=== PATIENT | female | born 1985 | race Hispanic/Latino ===

== ENCOUNTER 2017-09-08 23:55 | Inpatient (IN) | payer OTHER ==
[2017-09-08 23:55] VITALS: BMI 18.8
[2017-09-09 00:29] LABS: BASO # 0.1 K/uL (0.0-0.2); EOS # 0.1 K/uL (0.0-0.7); EOS % 0.6 % (0.0-4.0); HEMOGLOBIN 14.1 g/dL (11.0-16.0); LYMPH # 2.8 K/uL (1.0-4.3); LYMPH % 29.2 % (20.0-40.0); MEAN CORPUSCULAR HEMOGLOBIN 31.7 pg (27.0-31.0); MEAN CORPUSCULAR HGB CONC 34.1 g/dL (33.0-37.0); MEAN PLATELET VOLUME 8.8 fL (7.2-11.7); MONO # 0.9 K/uL (0.0-0.8); MONO % 9.1 % (0.0-10.0); NEUT # 5.8 K/uL (1.8-7.0); NEUT % 60.1 % (50.0-75.0); RBC 4.45 Mil/uL (3.80-5.20); RED CELL DISTRIBUTION WIDTH 12.5 % (11.5-14.5); WHITE BLOOD COUNT 9.6 K/uL (4.8-10.8)
--- NOTE | 2017-09-09 00:37 | C.PDOC ---
History Of Present Illness 32 year old female presents to the ED for evaluation of depression and SI with a plan. Patient reports she feels depressed wants to kill herself, patient states she wants to overdose. Patient denies any other physical complaints. Time Seen by Provider: 09/09/17 00:07 Chief Complaint (Nursing): Psychiatric Evaluation History Per: Patient History/Exam Limitations: no limitations Onset/Duration Of Symptoms: Hrs Current Symptoms Are (Timing): Still Present Suicide/Self Injury Attempted (Context): Ingestion Modifying Factor(s): None Associated Symptoms: Depression, Suicidal Thoughts, Suicidal Plan Recent travel outside of the [place]: No Additional History Per: Patient Past Medical History Reviewed: Historical Data, Nursing Documentation, Vital Signs Vital Signs: Last Vital Signs Temp 98.1 F 09/08/17 23:59 Pulse 76 09/08/17 23:59 Resp 20 09/08/17 23:59 BP 126/86 09/08/17 23:59 Pulse Ox 96 09/09/17 04:07 - Medical History PMH: Anxiety, Depression Denies: Diabetes, Hepatitis, HIV, HTN, Chronic Kidney Disease, Seizures, Sexually Transmitted Disease Surgical History: No Surg Hx - [facility] Procedures DETOXIFICATION SERVICES FOR SUBSTANCE ABUSE TREATMENT (04/19/17) INDIVIDUAL PSYCHOTHERAPY, SUPPORTIVE (04/19/17) Family History: States: Unknown Family Hx - Social History Hx Alcohol Use: No Hx Substance Use: Yes (heroine,xanax,coccaine ,marijuana) - Immunization History Hx Tetanus Toxoid Vaccination: No Hx Influenza Vaccination: No Hx Pneumococcal Vaccination: No Review Of Systems Except As Marked, All Systems Reviewed And Found Negative. Psych: Positive for: Depression, Suicidal ideation Physical Exam - Physical Exam Appears: Non-toxic, Other (tearful, crying) Skin: Normal Color, Warm, Dry Head: Atraumatic, Normacephalic Eye(s): bilateral: Normal Inspection Nose: No Discharge, No Deformity Oral Mucosa: Moist Neck: Normal ROM, Supple Chest: Symmetrical Cardiovascular: Rhythm Regular, No Murmur Respiratory: Normal Breath Sounds, No Rales, No Rhonchi, No Wheezing Gastrointestinal/Abdominal: Soft, No Tenderness, No Guarding, No Rebound Extremity: Normal ROM, No Pedal Edema, No Calf Tenderness, No Deformity, No Swelling Neurological/Psych: Oriented x3, Normal Speech, Normal Cognition Gait: Steady ED Course And Treatment - Laboratory Results Result Diagrams: 09/09/17 00:24 09/09/17 00:24 O2 Sat by Pulse Oximetry: 96 (On RA) Pulse Ox Interpretation: Normal Medical Decision Making Medical Decision Making: Impression : depression , SI with a plan Plan: * Labs * UA Patient is medically [facility] Disposition - Disposition Disposition: HOSPITALIZED Disposition Time: 04:06 Condition: STABLE Forms: [facility] ([place]) - Clinical Impression Clinical Impression: Major depressive disorder, recurrent - PA / CLINICAL PSYCHOLOGIST / Resident Statement MD/DO has reviewed & agrees with the documentation as recorded. - Scribe Statement The provider has reviewed the documentation as recorded by the Scribe Albert Garcia All medical record entries made by the Scribe were at my direction and personally dictated by me. I have reviewed the chart and agree that the record accurately reflects my personal performance of the history, physical exam, medical decision making, and the department course for this patient. I have also personally directed, reviewed, and agree with the discharge instructions and disposition. Decision To Admit - Pt Status Changed To: Hospital Disposition Of: Inpatient - Admit Certification Admit to Inpatient:: After my assessment, the patient will require hospitalization for at least two midnights. This is because of the severity of symptoms shown, intensity of services needed, and/or the medical risk in this patient being treated as an outpatient. - InPatient: Physician Admission Certification: I certify that this patient requires 2 or more midnights of care for the following reason:: depressed with si - . Bed Request Type: Psychiatry Admitting Physician: Jatinder Moody Patient Diagnosis: Major depressive disorder, recurrent
[2017-09-09 00:42] LABS: ACETAMINOPHEN < 10.0 ug/mL (10.0-30.0); ALB/GLOB RATIO 1.3 (1.0-2.1); ALBUMIN 4.1 g/dL (3.5-5.0); ALT/SGPT 23 U/L (9-52); AST/SGOT 22 U/L (14-36); BLOOD UREA NITROGEN 9 mg/dL (7-17); CALCIUM 8.6 mg/dl (8.6-10.4); GFR AFRICAN-AMERICAN > 60; GFR NON-AFRICAN AMERICAN > 60; SALICYLATE < 1.0 mg/dL 1
[2017-09-09 02:36] LABS: SQUAMOUS EPITHIAL 5 /hpf (0-5); URINE BILIRUBIN NEGATIVE (NEGATIVE); URINE BLOOD NEGATIVE (NEGATIVE); URINE CLARITY Clear (Clear); URINE COLOR Yellow (YELLOW); URINE GLUCOSE (UA) NORMAL (Normal); URINE LEUKOCYTE ESTERASE NEG Leu/uL (Negative); URINE NITRATE NEGATIVE (NEGATIVE); URINE PROTEIN NEGATIVE (NEGATIVE)
[2017-09-09 02:37] LABS: HCG,QUALITATIVE URINE NEGATIVE (NEGATIVE)
[2017-09-09 03:44] LABS: BARBITURATES, UR NEGATIVE (NEGATIVE); PHENCYCLIDINE, UR NEGATIVE (NEGATIVE)
[2017-09-09 03:52] LABS: BENZODIAZEPINES, UR POSITIVE (NEGATIVE); OPIATES, UR POSITIVE (NEGATIVE)
[2017-09-09 04:25] VITALS: O2SAT 98
--- NOTE | 2017-09-09 05:25 | PCM.BM ---
<GhislainesarahCarmelina - Last Filed: 09/09/17 05:23> Treatment Plan Problems - Problems identified on initial assessmt Major Depresssion Date Initiated: 09/09/17 Time Initiated: 05:23 Assessment reference: NA Status: Active Polysubstance Abuse Date Initiated: 09/09/17 Time Initiated: 05:24 Assessment reference: NA Status: Active Treatment assets and liabiliti Patient Assests: adapts well, cooperative, educated, insightful, resourceful, self-reliant, ADL independent, physically healthy, negotiates basic needs, cognitively intact Patient Liabilities: financial problems, substance abuse - Milieu Protocol Maintain good personal hygiene: daily Encourage regular showers, daily Remind patient to perform daily oral care, other Assist patient to perform ADL's (prn) Conduct patient checks and document Observation sheet: Constant Maintain personal safety: every shift Monitor environment for contraband/sharps , other Educate patient to report safety concerns to staff (prn) Medication safety: Monitor for expected outcome, potential side effects: every shift, Assess barriers to learning: every shift, Assess readiness for medication education: every shift <Gabriela Calderon - Last Filed: 09/09/17 10:53> Family Contact Family involvement: Famliy/SO not involved - Goals for Treatment Patient goals for treatment: "I want to go to rehab." Discharge/Continuing Care - Education Needs Education Needs: Patient Medication, Patient Coping Skills, Patient Placement options, Patient Community resources - Discharge Discharge Criteria: Tolerates medication w/o severe side effects, No longer exhibiting s/s of withdrawal, Reduction of target symptoms Discharge to:: Substance Abuse Rehab - Treatment Team Participation Discussed with Family/SO: No Was Patient/Family/SO present at Treatment Team Meeting: Yes <Jatinder Moody - Last Filed: 09/09/17 11:00> - Diagnosis (1) Major depressive disorder, recurrent Status: Acute Interventions: 09/09/17 10:59 * Assess/adjust medications daily and /or as needed * See patient on an individual basis 7x/week to assess symptoms of depression * Monitor for side effects & effectiveness of medications * (2) Opioid dependence Status: Acute Interventions: 09/09/17 10:59 * Assess 7x/week regarding severity of withdrawal * Educate regarding risks, benefits, side effects and alternatives of medications * Use Motivational Interviewing for abstinence * Use CBT for relapse prevention * Medication management for withdrawal symptoms * Encourage medication assisted treatment *
[2017-09-09] MEDS ORDERED: Aluminum Hydroxide/Magnesium Hydroxide Susp (30 mL) PO PRN (10:50)
--- NOTE | 2017-09-09 10:50 | PCM.PSYCH ---
Initial Psychiatric Evaluation - Initial Psychiatric Evaluation Type of Admission: Voluntary Legal Status: Capacity Chief Complaint (in patient's own words): I was feeling depressed and suicidal.' History of Present Illness and Precipitating Events: This is a 32 years old CF, who is currently homeless, came to the ED with depressed mood, suicidal ideation and heroin abuse. Bath Steward/Stewardess is familiar with this patient. Patient was just discharged from [facility] a few months ago. Patient has a long history of abusing heroin, cocaine , Xanax and bipolar disorder. As per the patient, she was discharged to [facility], rehab in [place]. As per the patient soon after rehabilitation she relapsed on heroin, cocaine and stopped taking her medications. Patient reports abusing 8- 10 bags of heroin daily along with $40-$60 of cocaine. Patient reports that yesterday she abused 10 bags, started becoming increasingly depressed, developed suicidal ideation and so came to the hospital to get help. She reports at times racing of thoughts, flight of ideas and agitation. Patient reports withdrawal symptoms including headaches, nausea, vomiting, abdominal cramps, joint pains and sweating. She also reports depressed mood, feelings of hopelessness and helplessness. She also reports poor sleep and poor appetite. She denies any auditory or visual hallucinations or any delusions. She denies any drinking or any other substance abuse. Medical history None Current Medications: Active Medications Generic Name Dose Route Start Last Admin Trade Name Freq PRN Reason Stop Dose Admin Pneumococcal Polyvalent Vaccine 0.5 ml 09/13/17 10:00 Pneumovax 23 Vaccine IM 09/13/17 10:01 .ONCE ONE Past Psychiatric History - Past Psychiatric History Previous Treatment History: Inpatient Pertinent Medical Hx (Current Medical&Sleep Prob, Allergies): Allergies Allergy/AdvReac Type Severity Reaction Status Date / Time codeine Allergy ITCHING Verified 09/09/17 00:05 No Known Home Med 09/09/17 Review of Systems - Review of Systems All systems: reviewed and no additional remarkable complaints except - Psychiatric Psychiatric: Anxiety, Irritability, Suicidal Ideation Mental Status Examination - Personal Presentation Personal Presentation: Looks stated age - Affect Affect: Constricted, Depressed - Motor Activity Motor Activity: Calm - Reliability in Providing Information Reliability in Providing Information: Good - Speech Speech: Organized - Mood Mood: Anxious - Formal Thought Process Formal Thought Process: Flight of ideas - Obsessions/Compulsions Obsessions: No Compulsions: No - Cognitive Functions Orientation: Person, Place, Situation Sensorium: Alert Attention/Concentration: Attentive Abstract Thinking: [place] Estimate of Intelligence: Below average Judgement: Imparied, as evidence by: Poor judgement, Imparied, as evidence by: Lack of insight into illness - Risk Risk: Suicidal, Withdrawal, Diminished functioning - Strength & Assets Inventory Strength & Assets Inventory: Employment status DSM 5 DX - DSM 5 DSM 5 Diagnosis: Bipolar disorder mixed severe without psychotic features Opiate use disorder severe Opiate withdrawal Cocaine use disorder severe - Recommended/Plan of Treatment Treatment Recommendations and Plan of Treatment: Bipolar disorder mixed severe without psychotic features CBT Psychoeducation Supportive therapy, group therapy, individual therapy Neurontin 100 mg by mouth 3 times a day Seroquel 50 mg by mouth daily at bedtime Trazodone 50 mg by mouth daily at bedtime Opioid use disorder severe CBT Psychoeducation Supportive therapy, individual therapy Use [place] for abstinence Opioid withdrawal CBT Psychoeducation Supportive therapy, individual therapy Clonidine when necessary Methadone taper Cocaine use disorder severe Monitor signs and symptoms Use NV for abstinence
--- NOTE | 2017-09-10 17:34 | PCM.PYCHPN ---
Psychiatric Progress Note - Psychiatric Progress Note Patient seen today, length of contact: 15 min Medication Change: No Medical Record Reviewed: Yes Mental Status Examination - Cognitive Function Orientation: Person, Place, Situation - Mood Mood: Anxious - Affect Affect: Constricted, Depressed - Formal Thought Process Formal Thought Process: Flight of ideas - Homicidal Ideation Homicidal Ideation: No
[2017-09-12 06:19] VITALS: BP 102/67; PULSE 51; RESP 20; TEMP 97.5
--- NOTE | 2017-09-12 10:15 | PCM.PYCHPN ---
Psychiatric Progress Note - Psychiatric Progress Note Patient seen today, length of contact: 15 min Patient Chief Complaint: I was feeling depressed and suicidal.' Medication Change: No Medical Record Reviewed: Yes Mental Status Examination - Cognitive Function Orientation: Person, Place, Situation - Mood Mood: Anxious - Affect Affect: Constricted, Depressed - Formal Thought Process Formal Thought Process: Flight of ideas - Homicidal Ideation Homicidal Ideation: No Goal/Treatment Plan - Goal/Treatment Plan Progress Toward Problem(s) and Goals/Treatment Plan: Bipolar disorder mixed severe without psychotic features CBT Psychoeducation Supportive therapy, group therapy, individual therapy Neurontin 100 mg by mouth 3 times a day Seroquel 50 mg by mouth daily at bedtime Trazodone 50 mg by mouth daily at bedtime Opioid use disorder severe CBT Psychoeducation Supportive therapy, individual therapy Use [place] for abstinence Opioid withdrawal CBT Psychoeducation Supportive therapy, individual therapy Clonidine when necessary Methadone taper Cocaine use disorder severe Monitor signs and symptoms Use [place] for abstinence
--- NOTE | 2017-09-12 11:26 | PCM.PYCHDC ---
Mental Status Examination - Mental Status Examination Orientation: Person, Place, Situation, Time Memory: Intact Mood: Neutral Affect: Constricted Speech: Soft Attention: WNL Concentration: WNL Association: WNL Fund of Knowledge: WNL Formal Thought Process: No Impairment Description of patient's judgement and insight: good, fair Psychotic Thoughts and Behaviors: denies any AVH Suicidal Ideation: No Current Homicidal Ideation?: No Discharge Summary - Discharge Note Reason for Hospitalization: This is a 32 years old CF, who is currently homeless, came to the ED with depressed mood, suicidal ideation and heroin abuse. Apartment Community Manager is familiar with this patient. Patient was just discharged from [facility] [place] a few months ago. Patient has a long history of abusing heroin, cocaine , Xanax and bipolar disorder. As per the patient, she was discharged to [facility], rehab in [place]. As per the patient soon after rehabilitation she relapsed on heroin, cocaine and stopped taking her medications. Patient reports abusing 8- 10 bags of heroin daily along with $40-$60 of cocaine. Patient reports that yesterday she abused 10 bags, started becoming increasingly depressed, developed suicidal ideation and so came to the hospital to get help. She reports at times racing of thoughts, flight of ideas and agitation. Patient reports withdrawal symptoms including headaches, nausea, vomiting, abdominal cramps, joint pains and sweating. She also reports depressed mood, feelings of hopelessness and helplessness. She also reports poor sleep and poor appetite. She denies any auditory or visual hallucinations or any delusions. She denies any drinking or any other substance abuse. Consultations:: List each consultation separately and include: 1. Reason for request. 2. Findings. 3. Follow-up Summary of Hospital Course include:: 1. Description of specific treatment plan utilized for patients during their course of treatmen. 2. Summarize the time- course for resolution of acute symptoms and/or regressed behaviors. 3. Describe issues identified and worked on during hospitalization. 4. Describe medication utilized. 5. Describe medical problems identified and treated. 6. Reassessment of suicide risk Summary of Hospital Course: This is a 32 years old CF, who is currently homeless, came to the ED with depressed mood, suicidal ideation and heroin abuse. Apartment Community Manager is familiar with this patient. Patient was just discharged from [facility] [place] a few months ago. Patient has a long history of abusing heroin, cocaine , Xanax and bipolar disorder. As per the patient, she was discharged to [facility], rehab in [place]. As per the patient soon after rehabilitation she relapsed on heroin, cocaine and stopped taking her medications. Patient reports abusing 8- 10 bags of heroin daily along with $40-$60 of cocaine. Patient reports that yesterday she abused 10 bags, started becoming increasingly depressed, developed suicidal ideation and so came to the hospital to get help. She reports at times racing of thoughts, flight of ideas and agitation. Patient reports withdrawal symptoms including headaches, nausea, vomiting, abdominal cramps, joint pains and sweating. She also reports depressed mood, feelings of hopelessness and helplessness. She also reports poor sleep and poor appetite. She denies any auditory or visual hallucinations or any delusions. She denies any drinking or any other substance abuse. Medical history None - Diagnosis (1) Major depressive disorder, recurrent Current Visit: Yes Status: Acute (2) Opioid dependence Current Visit: No Status: Acute - Final Diagnosis (DSM 5) Condition upon Discharge: STABLE DSM 5: Bipolar disorder mixed severe without psychotic features Opiate use disorder severe Opiate withdrawal Cocaine use disorder severe Disposition: HOME/ ROUTINE Prescriptions/Medication Reconciliation: Gabapentin [Neurontin] 100 mg PO BID #60 cap traZODone [Desyrel] 100 mg PO HS PRN #60 tab PRN Reason: Insomnia - Smoking Cessation Smoking Cessation Medication prescribed: No - Antipsychotic Medications Pt discharged on 2 or more routine antipsychotic medications: No
[2017-09-13] MEDS ORDERED: Influenza Vaccine 60 mcg/0.5 mL SYR (4YR UP) IM ONE (10:00)
[2017-09-13] MEDS ORDERED: Pneumococcal 23-Valent Vaccine IM ONE (10:00)
== END 2017-09-12 12:20 | disposition home or self-care (01) | DRG 430 ==
LOC: C.ER 23:55 → C.5E 09-09 04:05
PROVIDERS: ADMIT Psychiatry & Neurology Psychiatry; ATTEND Psychiatry & Neurology Psychiatry
DX: F33.9 Major depressive disorder, recurrent, unspecified (principal); R45.851 Suicidal ideations; F14.20 Cocaine dependence, uncomplicated; F11.23 Opioid dependence with withdrawal; F14.10 Cocaine abuse, uncomplicated; Z59.0 Homelessness; Z68.1 Body mass index [BMI] 19.9 or less, adult

== ENCOUNTER 2018-03-30 23:35 | Inpatient (IN) | payer MEDICAID, OTHER ==
[2018-03-30 23:36] VITALS: BMI 17.0
--- NOTE | 2018-03-31 00:19 | C.PDOC ---
History Of Present Illness The patient presents to the ED for psychiatric evaluation. Patient states she has been feeling depressed and states she has lost around 20 pounds within the past month. Patient states, " I don't want to be here anymore." She denies suicidal plan and has no physical complaints at this time. Time Seen by Provider: 03/31/18 00:19 Chief Complaint (Nursing): Psychiatric Evaluation History Per: Patient History/Exam Limitations: no limitations Onset/Duration Of Symptoms: Days Current Symptoms Are (Timing): Still Present Suicide/Self Injury Attempted (Context): None Modifying Factor(s): None Severity: None Pain Scale Rating Of: 0 Associated Symptoms: Depression, Suicidal Thoughts. denies: Suicidal Plan Involuntary Hold By: None Recent travel outside of the [place]: No Additional History Per: Patient Past Medical History Reviewed: Historical Data, Nursing Documentation, Vital Signs Vital Signs: Last Vital Signs Temp 98.2 F 03/30/18 23:47 Pulse 75 03/30/18 23:47 Resp 20 03/30/18 23:47 BP 115/77 03/30/18 23:47 Pulse Ox 96 03/31/18 00:54 - Medical History PMH: Anxiety, Bipolar Disorder, Depression, Post Traumatic Stress Disorder Denies: Diabetes, Hepatitis, HIV, HTN, Chronic Kidney Disease, Seizures, Sexually Transmitted Disease Surgical History: No Surg Hx - [facility] Procedures DETOXIFICATION SERVICES FOR SUBSTANCE ABUSE TREATMENT (04/19/17) INDIVIDUAL PSYCHOTHERAPY, SUPPORTIVE (04/19/17) Family History: States: Unknown Family Hx - Social History Hx Alcohol Use: No Hx Substance Use: Yes - Immunization History Hx Tetanus Toxoid Vaccination: No Hx Influenza Vaccination: No Hx Pneumococcal Vaccination: No Review Of Systems Constitutional: Positive for: Weight loss. Negative for: Fever, Chills Cardiovascular: Negative for: Chest Pain, Palpitations Respiratory: Negative for: Cough, Shortness of Breath Gastrointestinal: Negative for: Nausea, Vomiting Skin: Negative for: Rash, Lesions, Jaundice, Bruising Neurological: Negative for: Weakness, Numbness Psych: Positive for: Depression, Suicidal ideation Physical Exam - Physical Exam Appears: Non-toxic, No Acute Distress Skin: Warm, Dry Head: Normacephalic Eye(s): bilateral: Normal Inspection Oral Mucosa: Moist Neck: Supple Chest: Symmetrical, No Deformity, No Tenderness Cardiovascular: Rhythm Regular, No Murmur Respiratory: No Accessory Muscle Use Extremity: Normal ROM, Capillary Refill (less than 2 seconds ) Neurological/Psych: Oriented x3 ED Course And Treatment - Laboratory Results Result Diagrams: 03/31/18 00:15 03/31/18 00:15 O2 Sat by Pulse Oximetry: 96 (on RA) Pulse Ox Interpretation: Normal Progress Note: Bloodwork and urinalysis ordered and reviewed. Disposition Discussed With Dr.: Jatinder Moody Comment: acceptred the pt on his service and took over the care at 12:53 AM Doctor Will See Patient In The: Hospital Counseled Patient/Family Regarding: Studies Performed, Diagnosis - Disposition Disposition: HOSPITALIZED Disposition Time: 00:19 Condition: FAIR Forms: [employer] (Lao) - POA Present On Arrival: None - Clinical Impression Clinical Impression: Bipolar 1 disorder, Opioid use disorder, severe, dependence, Polysubstance abuse - Scribe Statement The provider has reviewed the documentation as recorded by the Scribe (Yessenia Norris) Provider Attestation: All medical record entries made by the Scribe were at my direction and personally dictated by me. I have reviewed the chart and agree that the record accurately reflects my personal performance of the history, physical exam, medical decision making, and the department course for this patient. I have also personally directed, reviewed, and agree with the discharge instructions and disposition. Decision To Admit - Pt Status Changed To: Hospital Disposition Of: Inpatient - Admit Certification Admit to Inpatient:: After my assessment, the patient will require hospitalization for at least two midnights. This is because of the severity of symptoms shown, intensity of services needed, and/or the medical risk in this patient being treated as an outpatient. - InPatient: Physician Admission Certification: I certify that this patient requires 2 or more midnights of care for the following reason:: After my assessment, the patient will require hospitalization for at least two midnights. This is because of the severity of symptoms shown, intensity of services needed, and/or the medical risk in this patient being treated as an outpatient. - . Bed Request Type: Psychiatry Admitting Physician: Jatinder Moody Patient Diagnosis: Bipolar 1 disorder, Opioid use disorder, severe, dependence, Polysubstance abuse
[2018-03-31 00:27] LABS: SQUAMOUS EPITHIAL 5 /hpf (0-5); URINE BACTERIA RARE (<OCC); URINE BILIRUBIN NEGATIVE (NEGATIVE); URINE BLOOD 1+ (NEGATIVE); URINE CLARITY Hazy (Clear); URINE COLOR Yellow (YELLOW); URINE GLUCOSE (UA) NORMAL (Normal); URINE HYALINE CAST 0-2 /lpf (0-2); URINE LEUKOCYTE ESTERASE TRACE Leu/uL (Negative); URINE PROTEIN NEGATIVE (NEGATIVE)
[2018-03-31 00:43] LABS: ALB/GLOB RATIO 1.7 (1.0-2.1); ALBUMIN 4.7 g/dL (3.5-5.0); ALT/SGPT 24 U/L (9-52); AST/SGOT 21 U/L (14-36); BASO # 0.1 K/uL (0.0-0.2); BASO % 1.1 % (0.0-2.0); BLOOD UREA NITROGEN 10 mg/dL (7-17); CALCIUM 9.3 mg/dl (8.6-10.4); EOS # 0.1 K/uL (0.0-0.7); EOS % 0.9 % (0.0-4.0); GFR AFRICAN-AMERICAN > 60; GFR NON-AFRICAN AMERICAN > 60; HEMOGLOBIN 12.9 g/dL (11.0-16.0); LYMPH # 2.1 K/uL (1.0-4.3); LYMPH % 27.9 % (20.0-40.0); MEAN CELL VOLUME 91.9 fL (81.0-99.0); MEAN CORPUSCULAR HEMOGLOBIN 31.3 pg (27.0-31.0); MEAN PLATELET VOLUME 10.5 fL (7.2-11.7); MONO # 0.6 K/uL (0.0-0.8); MONO % 7.5 % (0.0-10.0); NEUT # 4.7 K/uL (1.8-7.0); NEUT % 62.6 % (50.0-75.0); NRBC % 0.1 % (0.0-2.0); RBC 4.13 Mil/uL (3.80-5.20); RED CELL DISTRIBUTION WIDTH 12.4 % (11.5-14.5); WHITE BLOOD COUNT 7.5 K/uL (4.8-10.8)
[2018-03-31 00:53] LABS: BARBITURATES, UR NEGATIVE (NEGATIVE); BENZODIAZEPINES, UR NEGATIVE (NEGATIVE); PHENCYCLIDINE, UR NEGATIVE (NEGATIVE)
[2018-03-31 01:34] LABS: OPIATES, UR POSITIVE (NEGATIVE)
[2018-03-31] MEDS ORDERED: Aluminum Hydroxide/Magnesium Hydroxide Susp (30 mL) PO PRN (10:32)
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
--- NOTE | 2018-03-31 15:33 | PCM.BM ---
<Tom Covarrubias - Last Filed: 03/31/18 15:32> Treatment Plan Problems - Problems identified on initial assessmt Depression Date Initiated: 03/31/18 Time Initiated: 02:40 Assessment reference: NA Status: Active Treatment assets and liabiliti Patient Assests: adapts well, cooperative, educated, insightful, resourceful, self-reliant, ADL independent, physically healthy, negotiates basic needs, cognitively intact Patient Liabilities: substance abuse (Opiates, cocaine, weed) - Milieu Protocol Maintain good personal hygiene: daily Encourage regular showers, daily Remind patient to perform daily oral care, every shift Assist patient to perform ADL's Conduct patient checks and document Observation sheet: Q15 minutes Maintain personal safety: every shift Educate patient to report safety concerns to staff, every shift Monitor environment for contraband/sharps Medication safety: Monitor for expected outcome, potential side effects: every shift, Assess barriers to learning: every shift, Assess readiness for medication education: every shift <Karolina Kamara - Last Filed: 03/31/18 15:36> Family Contact Family involvement: Patient does not wish Family/SO involvement Family contact: Patient declines to allow family contact at present - Goals for Treatment Patient goals for treatment: "I do not know what type of treatment I want at this time." Discharge/Continuing Care - Education Needs Education Needs: Patient Medication, Patient Diagnosis/Disease Process, Patient Coping Skills, Patient Anger Management skills, Patient Placement options, Patient Community resources - Discharge Discharge Criteria: Free of Suicidal thoughts, Normal sleep pattern, Ability to care for self, No longer exhibiting s/s of withdrawal, Reduction of target symptoms Discharge to:: Substance Abuse Rehab, Other - Treatment Team Participation Discussed with Family/SO: No Was Patient/Family/SO present at Treatment Team Meeting: Yes <Jatinder Moody - Last Filed: 04/03/18 10:39> - Diagnosis (1) Bipolar 1 disorder Status: Acute Interventions: 04/03/18 10:38 * Assess/adjust medications daily and /or as needed * See patient on an individual basis 7x/week to assess level of manic behaviors and stability * Discuss risks, benefits, side effects and alternatives of medications * (2) Opioid use disorder, severe, dependence Status: Acute Interventions: 04/03/18 10:39 * Assess 7x/week regarding severity of withdrawal * Educate regarding risks, benefits, side effects and alternatives of medications * Use Motivational Interviewing for abstinence * Use CBT for relapse prevention * Medication management for withdrawal symptoms * Encourage medication assisted treatment *
[2018-04-01] MEDS ORDERED: Aluminum Hydroxide/Magnesium Hydroxide Susp (30 mL) PO PRN (16:12)
--- NOTE | 2018-04-01 16:14 | PCM.PYCHPN ---
Psychiatric Progress Note - Psychiatric Progress Note Patient seen today, length of contact: 15 minutes Patient Chief Complaint: I'm still feeling withdrawal symptoms. I need my methadone. Problems Identified/Issues Discussed: Patient seen, chart reviewed, case discussed with the staff. Issues related to illness and treatment were discussed with the patient and staff. Reported compliant with treatment with no adverse affects. Tolerating treatment very well. Patient reported still feeling withdrawal symptoms as she got only one dose of methadone yesterday. Calm and cooperative. Mood reported as depressed. Affect appropriate. Aftercare discussed with the patient. Patient was awake, alert and oriented 3. Denied any delusions, auditory or visual hallucinations, suicidal ideations or homicidal ideations at the time of evaluation. Medical Problems: None reported Diagnostic Results: Reviewed Medication Change: Yes (We will start methadone taper for 3 days) Medical Record Reviewed: Yes Mental Status Examination - Cognitive Function Orientation: Person, Place, Situation, Time Memory: Intact Attention: WNL Concentration: WNL Association: WNL Fund of Knowledge: WN Decription of patient's judgement and insights: Fair - Mood Mood: Depressed - Affect Affect: Depressed - Speech Speech: Appropriate - Formal Thought Process Formal Thought Process: No Impairment Psychotic Thoughts and Behaviors: None reported - Suicidal Ideation Suicidal Ideation: No - Homicidal Ideation Homicidal Ideation: No Goal/Treatment Plan - Goal/Treatment Plan Need for Continued Stay: Remain at risks for inpatient hospitalization, Discharge may exacerbated symptoms, Severe functional impairment Progress Toward Problem(s) and Goals/Treatment Plan: Patient education. Supportive therapy. CBT for relapse prevention. [place] for abstinence. We will start methadone taper for 3 days. Other when necessary medications. Continue rest of the treatment as before. Estimated Date of D/C: 04/07/18 - Smoking Cessation Smoking Cessation Initiated: No
--- NOTE | 2018-04-02 15:54 | PCM.PYCHPN ---
Psychiatric Progress Note - Psychiatric Progress Note Patient seen today, length of contact: 15 minutes Patient Chief Complaint: I'm feeling better. Still have some sleeping problem. Problems Identified/Issues Discussed: Patient seen, chart reviewed, case discussed with the staff. Issues related to illness and treatment were discussed with the patient and staff. Reported compliant with treatment with no adverse affects. Tolerating treatment very well. Patient reported feeling better. Still reported some sleeping problem. We'll increase the dose of trazodone to 100 mg. Patient agreed. Calm and cooperative. Mood reported as depressed. Affect appropriate. Aftercare discussed with the patient. Patient was awake, alert and oriented 3. Patient was feeling better but needs more time for stabilization. Denied any delusions, auditory or visual hallucinations, suicidal ideations or homicidal ideations at the time of evaluation. Medical Problems: None reported Diagnostic Results: Reviewed DSM 5 Symptoms Update: Improving with treatment Medication Change: No Medical Record Reviewed: Yes Mental Status Examination - Cognitive Function Orientation: Person, Place, Situation, Time Memory: Intact Attention: WNL Concentration: WNL Association: WN Fund of Knowledge: [facility] Decription of patient's judgement and insights: Fair - Mood Mood: Depressed (Less than before) - Affect Affect: Depressed - Speech Speech: Appropriate - Formal Thought Process Formal Thought Process: No Impairment Psychotic Thoughts and Behaviors: None reported - Suicidal Ideation Suicidal Ideation: No - Homicidal Ideation Homicidal Ideation: No Goal/Treatment Plan - Goal/Treatment Plan Need for Continued Stay: Remain at risks for inpatient hospitalization, Discharge may exacerbated symptoms, Severe functional impairment Progress Toward Problem(s) and Goals/Treatment Plan: Patient education. Supportive therapy. CBT for relapse prevention. [place] for abstinence. Continue treatment as before. Estimated Date of D/C: 04/07/18 - Smoking Cessation Smoking Cessation Initiated: No
--- NOTE | 2018-04-03 10:39 | PCM.PYCHPN ---
Psychiatric Progress Note - Psychiatric Progress Note Patient seen today, length of contact: 15 minutes Patient Chief Complaint: "I m feeling better" Problems Identified/Issues Discussed: Patient seen and evaluated, chart reviewed and discussed with the nurse. Staff reports pt is improving. She reports improvement in her mood and withdrawal symptoms. She denies any AVH or any SI/HI. Patient is compliant with medications and denies any side effects. Symptoms are improving but need more time to stabilize. Support and psychoeducation given. Medication Change: No Medical Record Reviewed: Yes Mental Status Examination - Cognitive Function Orientation: Person, Place, Situation, Time Memory: Intact Attention: WNL Concentration: Poor Association: WNL Fund of Knowledge: Poor - Mood Mood: Depressed - Affect Affect: Constricted, Blunted - Speech Speech: Appropriate, Soft - Formal Thought Process Formal Thought Process: No Impairment - Suicidal Ideation Suicidal Ideation: No - Homicidal Ideation Homicidal Ideation: No Goal/Treatment Plan - Goal/Treatment Plan Need for Continued Stay: Remain at risks for inpatient hospitalization, Discharge may exacerbated symptoms, Severe functional impairment Progress Toward Problem(s) and Goals/Treatment Plan: Bipolar disorder MRE depressed severe without psychotic features -CBT -Psychoeducation -Supportive therapy, group therapy, individual therapy -Neurontin 100 mg by mouth 3 times a day -Trazodone 50 mg by mouth daily at bedtime Opioid use disorder severe Opioid withdrawal -CBT -Psychoeducation -Supportive therapy, individual therapy -Use [place] for abstinence -Clonidine when necessary -Methadone taper Cocaine use disorder severe -Monitor signs and symptoms -Use [place] for abstinence Estimated Date of D/C: 04/07/18
[2018-04-03 16:00] VITALS: O2SAT 99
[2018-04-03] MEDS ORDERED: Bacitracin Ointment 30 GM TUBE TOP PRN (18:08)
[2018-04-03] MEDS: Divalproex 250 mg DR Tab PO SCH (18:34)
[2018-04-04 06:46] VITALS: BP 107/62; PULSE 55; RESP 18; TEMP 98.4
[2018-04-04] MEDS: Divalproex 250 mg DR Tab PO SCH (09:34)
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
== END 2018-04-04 11:45 | disposition home or self-care (01) | DRG 430 ==
LOC: C.ER 23:35 → C.5E 03-31 01:46
PROVIDERS: ADMIT Psychiatry & Neurology Psychiatry; ATTEND Psychiatry & Neurology Psychiatry
PROC: HZ2ZZZZ Detoxification Services for Substance Abuse Treatment (ICD-10-PCS; principal; 2018-03-31)
PROC: GZHZZZZ Group Psychotherapy (ICD-10-PCS; 2018-03-31)
PROC: HZ52ZZZ Individual Psychotherapy for Substance Abuse Treatment, Cognitive-Behavioral (ICD-10-PCS; 2018-03-31)
PROC: HZ59ZZZ Individual Psychotherapy for Substance Abuse Treatment, Supportive (ICD-10-PCS; 2018-03-31)
PROC: HZ56ZZZ Individual Psychotherapy for Substance Abuse Treatment, Psychoeducation (ICD-10-PCS; 2018-03-31)
PROC: HZ42ZZZ Group Counseling for Substance Abuse Treatment, Cognitive-Behavioral (ICD-10-PCS; 2018-03-31)
PROC: HZ46ZZZ Group Counseling for Substance Abuse Treatment, Psychoeducation (ICD-10-PCS; 2018-03-31)
PROC: GZ58ZZZ Individual Psychotherapy, Cognitive-Behavioral (ICD-10-PCS; 2018-03-31)
PROC: GZ56ZZZ Individual Psychotherapy, Supportive (ICD-10-PCS; 2018-03-31)
DX: F31.4 Bipolar disorder, current episode depressed, severe, without psychotic features (principal); F11.23 Opioid dependence with withdrawal; F14.20 Cocaine dependence, uncomplicated; F43.10 Post-traumatic stress disorder, unspecified; F60.3 Borderline personality disorder; R45.851 Suicidal ideations